=== PATIENT | male | born 1980 | race Hispanic/Latino ===

== ENCOUNTER 2018-04-17 20:47 | Emergency (ER) | payer SELFPAY ==
[~2018-04-17] VITALS: Ht 175.3 cm; Wt 59.0 kg
[~2018-04-17 20:47] MED LIST: LISINOPRIL10 MG PO
[2018-04-17] MEDS ORDERED: LISINOPRIL10 MG PO (21:08)
[2018-04-17 22:45] VITALS: BP 114/71
[2018-04-17] MEDS ORDERED: ZESTRIL10 M1 PO (22:57)
== END 2018-04-17 23:04 | disposition home or self-care (01) | DRG 305 ==
LOC: ED 20:47
DX: I10 Essential (primary) hypertension (principal); F41.9 Anxiety disorder, unspecified; T46.5X6A Underdosing of other antihypertensive drugs, initial encounter; Z91.128 Patient's intentional underdosing of medication regimen for other reason

== ENCOUNTER 2022-07-04 11:04 | Emergency (ER) | payer SELFPAY ==
[~2022-07-04] VITALS: Ht 175.3 cm; Wt 66.8 kg
[~2022-07-04 11:04] MED LIST changes: +ZESTRIL10 M1 PO
[2022-07-04] MEDS ORDERED: OMEPRAZOLE DR20 MG (12:36)
[2022-07-04] MEDS ORDERED: LISINOPRIL10 MG PO (12:36)
[2022-07-04] MEDS ORDERED: NAPROXEN250 MG PO (12:37)
[2022-07-04] MEDS ORDERED: ANUCORT-HC25 MG RE (13:03)
[2022-07-04 13:17] VITALS: BP 149/90
== END 2022-07-04 13:20 | disposition home or self-care (01) | DRG 395 ==
LOC: ED 11:04
DX: K64.8 Other hemorrhoids (principal)

== ENCOUNTER 2022-08-11 08:39 | Day surgery (SDC) | payer SELFPAY ==
[~2022-08-11] VITALS: Ht 177.8 cm; Wt 70.8 kg
[~2022-08-11 08:39] MED LIST changes: +ANUCORT-HC25 MG RE; +NAPROXEN250 MG PO; +OMEPRAZOLE DR20 MG
[2022-08-11] MEDS ORDERED: LORTAB5 PO (10:14)
[2022-08-11 12:18] VITALS: BP 139/92
== END 2022-08-11 12:10 | disposition home or self-care (01) | DRG 349 ==
LOC: ORM 08:39
PROVIDERS: ATTEND Surgery
PROC: 06BY3ZC Excision of Hemorrhoidal Plexus, Percutaneous Approach (ICD-10-PCS; principal; 2022-08-11)
DX: K64.2 Third degree hemorrhoids (principal); I10 Essential (primary) hypertension
CPT/HCPCS: C9290; J0131; J0690